=== PATIENT | female | born 1990 | race Hispanic/Latino ===

== ENCOUNTER 2017-05-05 18:25 | Emergency (ER) | payer OTHER ==
[2017-05-05] MEDS ORDERED: Proparacaine 0.5% Opth 15 ML BOT ONE (21:11)
[2017-05-05] MEDS ORDERED: Fluorescein Opthalmic Strip ONE (21:11)
== END 2017-05-05 22:09 | disposition home or self-care (01) ==
LOC: ERS 18:25
DX: H57.12 Ocular pain, left eye (principal); E11.9 Type 2 diabetes mellitus without complications; F31.9 Bipolar disorder, unspecified; F41.9 Anxiety disorder, unspecified
CPT/HCPCS: 99282

== ENCOUNTER 2018-04-12 11:14 | Emergency (ER) | payer OTHER ==
[2018-04-12] MEDS ORDERED: Proparacaine 0.5% Opth 15 ML BOT ONE (12:23)
[2018-04-12] MEDS ORDERED: Fluorescein Opthalmic Strip ONE (12:23)
== END 2018-04-12 12:35 | disposition home or self-care (01) ==
LOC: ERS 11:14
DX: S05.01XA Injury of conjunctiva and corneal abrasion without foreign body, right eye, initial encounter (principal); H10.211 Acute toxic conjunctivitis, right eye; E11.9 Type 2 diabetes mellitus without complications; F41.9 Anxiety disorder, unspecified; F31.9 Bipolar disorder, unspecified; X58.XXXA Exposure to other specified factors, initial encounter
CPT/HCPCS: 99283

== ENCOUNTER 2020-03-27 13:18 | Emergency (ER) | payer OTHER ==
[2020-03-27] MEDS ORDERED: Proparacaine 0.5% Opth 15 ML BOT ONE (14:21)
[2020-03-27] MEDS ORDERED: Fluorescein Opthalmic Strip ONE (14:21)
== END 2020-03-27 15:56 | disposition home or self-care (01) ==
LOC: ERS 13:18
DX: S05.91XA Unspecified injury of right eye and orbit, initial encounter (principal); E11.9 Type 2 diabetes mellitus without complications; F41.9 Anxiety disorder, unspecified; F32.9 Major depressive disorder, single episode, unspecified; X58.XXXA Exposure to other specified factors, initial encounter
CPT/HCPCS: 99283

== ENCOUNTER 2020-06-04 21:43 | Emergency (ER) | payer OTHER ==
[2020-06-04] MEDS ORDERED: Acetaminophen 500 MG TAB ONE (23:41)
== END 2020-06-05 00:36 | disposition home or self-care (01) ==
LOC: ERS 21:43
DX: J02.9 Acute pharyngitis, unspecified (principal); E11.9 Type 2 diabetes mellitus without complications
CPT/HCPCS: 36416; 99283

== ENCOUNTER 2021-05-03 14:30 | Emergency (ER) | payer OTHER ==
[2021-05-03] MEDS ORDERED: Ondansetron ODT 4 MG TAB ONE (16:48)
[2021-05-03] MEDS ORDERED: Ketorolac Tromethamine 30 MG/ML VIAL ONE (16:48)
[2021-05-03 22:49] LABS: SARS-CoV-2 PCR by NAA DETECTED (NotDetected)
== END 2021-05-03 17:15 | disposition home or self-care (01) ==
LOC: ERS 14:30
DX: U07.1 COVID-19 (principal); J06.9 Acute upper respiratory infection, unspecified; E11.9 Type 2 diabetes mellitus without complications
CPT/HCPCS: 87804; 96372; 99283; J1885; Q0162; U0003; U0005

== ENCOUNTER 2021-05-10 22:40 | Emergency (ER) | payer OTHER ==
[2021-05-10] MEDS ORDERED: Ondansetron PF 4 MG/2 ML Vial ONE (23:02)
[2021-05-10] MEDS ORDERED: Ketorolac Tromethamine 30 MG/ML VIAL ONE (23:02)
[2021-05-10] MEDS ORDERED: Acetaminophen 500 MG TAB ONE (23:02)
== END 2021-05-11 01:00 | disposition home or self-care (01) ==
LOC: ERS 22:40
DX: U07.1 COVID-19 (principal); E11.9 Type 2 diabetes mellitus without complications
CPT/HCPCS: 36416; 96374; 96375; J1885; J2405

== ENCOUNTER 2022-08-06 12:04 | Emergency (ER) | payer OTHER | END 2022-08-06 13:00 | disposition left against medical advice (07) | LOC: ERS 12:04 | DX: Z91.199 Patient's noncompliance with other medical treatment and regimen due to unspecified reason (principal) | CPT/HCPCS: 99283 ==

== ENCOUNTER 2023-12-06 22:38 | Observation (INO) | payer OTHER ==
[2023-12-06 23:38] LABS: Influenza A by NAA Not Detected (NotDetected); Influenza B by NAA Not Detected (NotDetected); SARS-CoV-2 NAA Rapid Test Not Detected (NotDetected)
[2023-12-07] MEDS ORDERED: Ketorolac Tromethamine 30 MG (1 mL) VIAL ONE ×2 (00:21→09:46)
[2023-12-07 00:29] LABS: #Basophils 0.03 10x3/uL (0.0-0.2); #Eosinphils Less than 0.03 10x3/uL (0.0-0.7); %Basophils 0.2 % (0.0-1.0); %Neutrophils 83.3 % (42.0-75.0); Hematocrit 34.5 % (36.0-47.0); Hemoglobin 11.7 g/dL (12.0-16.0); Mean Corpuscular HGB CONC 33.9 g/dL (32.0-36.0); Mean Corpuscular Hemoglobin 29.3 pg (27.0-31.0); Mean Corpuscular Volume 86.3 fL (78.0-98.0); Mean Platelet Volume 10.1 fL (7.4-10.4); Platelet Count 418 10x3/uL (130-400); RBC Distribution Width 11.3 % (11.5-14.5)
[2023-12-07 00:43] LABS: BHCG - Serum Negative (NEGATIVE); Pregs Control Background? CLEAR/WHITE (CLR/WHITE); Pregs Control Bar Appear? YES (CONTROL BAR)
[2023-12-07 01:00] LABS: ALT (SGPT) Less than 5 U/L (8-55); AST (SGOT) 9 U/L (5-34); Albumin 2.9 g/dL (3.5-5.0); Alkaline Phosphatase 148 U/L (40-110); Anion Gap 20 mmol/L (10-20); BUN (Urea Nitrogen) 8 mg/dL (7.0-18.7); Bilirubin, Total 0.4 mg/dL (0.2-1.2); Calc. Creatinine Clearance 0 mL/min (70-130); Calcium 9.6 mg/dL (7.8-10.44); Carbon Dioxide 19 mmol/L (22-29); Chloride 98 mmol/L (98-107); Estimated GFR 104; Globulin 4.8 g/dL (2.4-3.5); Glucose 365 mg/dL (70-105); Lipase 11 U/L (8-78); Potassium 3.9 mmol/L (3.5-5.1); Protein, Total 7.7 g/dL (6.0-8.3); Sodium 133 mmol/L (136-145)
[2023-12-07] MEDS ORDERED: Sodium Chloride 0.9% 100 ML ONE (01:22)
[2023-12-07] MEDS ORDERED: Morphine 4 MG/ML VIAL ONE (01:22)
[2023-12-07] MEDS ORDERED: Piperacillin/Tazobactam 4.5 GM VIAL ONE (01:22)
[2023-12-07 02:11] LABS: Bacteria/HPF 2+ HPF (None Seen); Bilirubin Negative (Negative); Blood, Urine 2+ (Negative); CAUTI Indications for Culture Pelvic or flank pain; Clarity Clear (Clear); Glucose, Urine (Dipstick) Greater than 1000 mg/dL (Negative); Ketone, Urine Greater than 150 mg/dL (Negative); Leukocyte 25 Leu/uL (Negative); Nitrite Negative (Negative); Protein, Urine (Dipstick) 20 mg/dL (Neg-Trace); Specific Gravity, Urine 1.037 (1.002-1.036); Squamous Epithelial 0-3 HPF (0-3); Urobilinogen Normal mg/dL (Less than 2); WBC/HPF 21-50 HPF (0-3); Yeast-Budding 2+ HPF (None Seen); pH, Urine 5.5 (5.0-9.0)
[2023-12-07] MEDS ORDERED: Morphine 4 MG/ML VIAL SLOW IVP PRN ×2 (02:17→02:37)
[2023-12-07 02:18] LABS: Urine Culture Reflex Yes Yes
[2023-12-07] MEDS ORDERED: Dextrose 50% Abboject 50 ML SYRINGE SLOW IVP PRN (02:24)
[2023-12-07] MEDS ORDERED: Ipratropium/Albuterol 3 ML NEB NEB PRN (02:24)
[2023-12-07] MEDS ORDERED: Dextrose 5% in Water 1,000 ML IV PRN (02:24)
[2023-12-07] MEDS ORDERED: Glucagon 1 MG/ML KIT IM PRN (02:24)
[2023-12-07] MEDS ORDERED: Mag-Al 1200 mg/1200 mg/30 ML UDCUP PO PRN (02:24)
[2023-12-07] MEDS ORDERED: hydrALAZINE 20 MG/ML VIAL SLOW IVP PRN (02:24)
[2023-12-07] MEDS ORDERED: Acetaminophen 325 MG TAB PO PRN ×2 (02:30→02:37)
[2023-12-07] MEDS ORDERED: Ondansetron ODT 4 MG TAB SL PRN (02:30)
[2023-12-07] MEDS: Lactated Ringer's 1,000 ML IV SCH (03:49)
[2023-12-07] MEDS: Ondansetron PF 4 MG/2 ML Vial IVP PRN (03:50)
[2023-12-07] MEDS: HYDROcodone/Acetaminophen 5/325 mg Tablet PO PRN (03:50)
[2023-12-07 04:10] VITALS: BMI 23.3
[2023-12-07] MEDS: Piperacillin/Tazobactam 3.375 GM in Sodium Chloride 0.9% 100 ML IVPB SCH (06:05)
[2023-12-07] MEDS: HumaLOG 300 UNITS/3 ML VIAL SC PRN ×2 (06:14→21:21)
[2023-12-07 07:37] LABS: ALT (SGPT) 16 U/L (8-55); AST (SGOT) 41 U/L (5-34); Albumin 2.4 g/dL (3.5-5.0); Alkaline Phosphatase 173 U/L (40-110); Anion Gap 18 mmol/L (10-20); BUN (Urea Nitrogen) 7 mg/dL (7.0-18.7); Bilirubin, Total 0.3 mg/dL (0.2-1.2); Calc. Creatinine Clearance 100 mL/min (70-130); Calcium 8.5 mg/dL (7.8-10.44); Carbon Dioxide 16 mmol/L (22-29); Chloride 105 mmol/L (98-107); Estimated GFR 117; Globulin 4.1 g/dL (2.4-3.5); Glucose 306 mg/dL (70-105); Potassium 4.1 mmol/L (3.5-5.1); Protein, Total 6.5 g/dL (6.0-8.3); Sodium 135 mmol/L (136-145)
[2023-12-07] MEDS: Famotidine 20 MG TAB PO SCH (07:50)
[2023-12-07 07:55] LABS: Hemoglobin A1c 13.2 % (4.0-6.0)
[2023-12-07] MEDS ORDERED: EPINEPHrine 1 MG/ML VIAL ONE (08:42)
[2023-12-07] MEDS ORDERED: Bupivacaine 0.25% HCL 30 ML VIAL ONE (08:43)
[2023-12-07] MEDS ORDERED: Midazolam HCl 2 mg/2 ml Vial ONE (09:25)
[2023-12-07] MEDS ORDERED: Dexamethasone 20 MG/5 ML VIAL ONE (09:46)
[2023-12-07] MEDS ORDERED: Rocuronium Bromide 10 MG/ML (10ML VIAL) ONE (09:46)
[2023-12-07] MEDS ORDERED: PROPOFOL 200 MG/20 ML VIAL ONE (09:46)
[2023-12-07] MEDS ORDERED: Glycopyrrolate 0.2 MG/ML 5 ML SYRINGE ONE (09:46)
[2023-12-07] MEDS ORDERED: NEOSTIGMINE 3 MG/3 ML SYR 3 MG/3 ML SYRINGE ONE (09:46)
[2023-12-07] MEDS ORDERED: Lidocaine 1% PF 5 ML VIAL ONE (09:46)
[2023-12-07] MEDS ORDERED: fentaNYL PF 100 MCG/2 ML SYRINGE ONE (11:40)
[2023-12-07] MEDS ORDERED: Non-Formulary Medication 1 EACH PO PRN (12:02)
[2023-12-07] MEDS ORDERED: Promethazine HCl 25 MG/ML VIAL IM PRN (12:15)
[2023-12-07] MEDS ORDERED: Ondansetron HCl/PF 4 MG/2 ML Vial IVP PRN (12:15)
[2023-12-07] MEDS: Ketorolac Tromethamine 30 MG (1 mL) VIAL IVP PRN (15:19)
[2023-12-07] MEDS: Promethazine HCl 25 MG/ML VIAL IM PRN (17:21)
[2023-12-07] MEDS: Insulin Glargine 30 UNITS/0.3 ML VIAL SC SCH (21:21)
[2023-12-08] MEDS: HumaLOG 300 UNITS/3 ML VIAL SC PRN (06:07)
[2023-12-08] MEDS: Insulin Glargine 30 UNITS/0.3 ML VIAL SC SCH (12:59)
[2023-12-08] MEDS: Ondansetron PF 4 MG/2 ML Vial IVP PRN (12:59)
[2023-12-08] MEDS: Sodium Chloride 0.9% 500 ML IV SCH (13:00)
[2023-12-08 17:33] LABS: Hemoglobin 10.2 g/dL (12.0-16.0); Platelet Count 435 10x3/uL (130-400)
[2023-12-08] MEDS: Metoclopramide HCl 10 MG (2 mL) VIAL IVP SCH (18:09)
[2023-12-09 05:02] LABS: #Basophils Less than 0.03 10x3/uL (0.0-0.2); #Eosinphils Less than 0.03 10x3/uL (0.0-0.7); %Basophils 0.1 % (0.0-1.0); %Lymphocytes 3.5 % (21.0-51.0); %Monocytes 4.9 % (0.0-10.0); %Neutrophils 90.9 % (42.0-75.0); Hematocrit 28.6 % (36.0-47.0); Hemoglobin 9.4 g/dL (12.0-16.0); Mean Corpuscular HGB CONC 32.9 g/dL (32.0-36.0); Mean Corpuscular Hemoglobin 29.4 pg (27.0-31.0); Mean Corpuscular Volume 89.4 fL (78.0-98.0); Mean Platelet Volume 9.9 fL (7.4-10.4); Platelet Count 448 10x3/uL (130-400); RBC Distribution Width 11.9 % (11.5-14.5)
[2023-12-09 05:35] LABS: Anion Gap 18 mmol/L (10-20); BUN (Urea Nitrogen) 12 mg/dL (7.0-18.7); Calc. Creatinine Clearance 83 mL/min (70-130); Calcium 9.2 mg/dL (7.8-10.44); Carbon Dioxide 15 mmol/L (22-29); Chloride 113 mmol/L (98-107); Estimated GFR 96; Glucose 283 mg/dL (70-105); Potassium 2.9 mmol/L (3.5-5.1); Sodium 143 mmol/L (136-145)
[2023-12-09] MEDS: Potassium Chloride 20 MEQ in Premix 1 BAG IVPB SCH (06:59)
[2023-12-09 07:42] LABS: Magnesium 1.9 mg/dL (1.6-2.6)
[2023-12-09 10:14] LABS: Bilirubin Negative (Negative); Blood, Urine 2+ (Negative); Clarity Turbid (Clear); Glucose, Urine (Dipstick) Greater than 1000 mg/dL (Negative); Ketone, Urine Greater than 150 mg/dL (Negative); Leukocyte Negative Leu/uL (Negative); Nitrite Negative (Negative); Protein, Urine (Dipstick) 70 mg/dL (Neg-Trace); Specific Gravity, Urine 1.037 (1.002-1.036); Squamous Epithelial None Seen HPF (0-3); Urobilinogen Normal mg/dL (Less than 2); Yeast-Budding 4+ HPF (None Seen)
[2023-12-09 10:26] LABS: Bacteria/HPF Rare-Few HPF (None Seen)
[2023-12-09] MEDS: Pantoprazole 40 MG VIAL IVP SCH (12:32)
[2023-12-09] MEDS ORDERED: Iopamidol-370 76% 500 ML MDV (1 ML CHARGE) ONE (12:34)
[2023-12-09 14:46] LABS: Anion Gap 17 mmol/L (10-20); BUN (Urea Nitrogen) 11 mg/dL (7.0-18.7); Calc. Creatinine Clearance 74 mL/min (70-130); Calcium 9.3 mg/dL (7.8-10.44); Carbon Dioxide 16 mmol/L (22-29); Chloride 117 mmol/L (98-107); Estimated GFR 85; Glucose 289 mg/dL (70-105); Potassium 2.8 mmol/L (3.5-5.1); Sodium 147 mmol/L (136-145)
[2023-12-09 20:12] VITALS: BP 128/80; TEMP 98.2
== END 2023-12-09 21:00 | disposition home or self-care (01) ==
LOC: ERS 22:38 → INTOOBSV 12-07 02:12 → SJJU 12-07 02:12 → OBSVTOIN 12-07 02:12
PROVIDERS: ADMIT Internal Medicine; ATTEND Internal Medicine
PROC: 0FT44ZZ Resection of Gallbladder, Percutaneous Endoscopic Approach (ICD-10-PCS; principal; 2023-12-07)
PROC: 3E033XZ Introduction of Vasopressor into Peripheral Vein, Percutaneous Approach (ICD-10-PCS; 2023-12-07)
DX: K80.12 Calculus of gallbladder with acute and chronic cholecystitis without obstruction (principal); K20.90 Esophagitis, unspecified without bleeding; E87.20 Acidosis, unspecified; N39.0 Urinary tract infection, site not specified; N13.30 Unspecified hydronephrosis; F41.9 Anxiety disorder, unspecified; F32.A Depression, unspecified; E11.65 Type 2 diabetes mellitus with hyperglycemia; E87.6 Hypokalemia; R33.9 Retention of urine, unspecified; Z79.4 Long term (current) use of insulin; Z79.899 Other long term (current) drug therapy
CPT/HCPCS: 36415; 36416; 51701; 51798; 71045; 74177; 76705; 80048; 80053; 81001; 83036; 83605; 83690; 83735; 84703; 85014; 85018; 85025; 85049; 87040; 87077; 87086; 88304; 96361; 96365; 96372; 96375; 96376; C1889; C9113; G0378; J0171; J0665; J1100; J1815; J1885; J2250; J2270; J2405; J2543; J2550; J2704; J2765; J3480; J3490; J7030; J7120; Q9967

== ENCOUNTER 2023-12-13 21:49 | Inpatient (IN) | payer OTHER ==
[~2023-12-13 21:49] MED LIST: Iopamidol-370 76% 500 ML MDV (1 ML CHARGE) ONE
[2023-12-13] MEDS ORDERED: NOREPINEPHRINE 8 MG/250 ML-D5W 250 ML ONE (22:05)
[2023-12-13 22:16] LABS: Analyzer IN Cardio ER; Base Excess (BEa) -25.3 mEq/L (-2.0 to +3.0); CO2 Tension 41.5 mmHg (35.0-45.0); Calcium, Ionized (arterial) 1.29 mmol/L (1.12-1.30); Carboxyhemoglobin (COHb) 0.4 gm% (0.0-3.0); Hematocrit-ABG 26 % (36.0-47.0); Hemoglobin (Hb) 8.9 g/dL (12.0-16.0); O2 Tension (PaO2), arterial 241.3 mmHg (80.0-100.0)
[2023-12-13 22:21] LABS: Actual Bicarbonate (HCO3a) 7.1 mEq/L (22-28); Potassium - ABG Lab 1.42 mmol/L (3.70-5.30)
[2023-12-13 22:22] LABS: ALV-art Gradient 419.825 mmHg (0-20); Puncture Site LBA
[2023-12-13] MEDS ORDERED: Potassium Chloride 20 MEQ (100 mL) BAG ONE ×2 (22:24→23:04)
[2023-12-13 22:30] LABS: Bacteria/HPF None Seen HPF (None Seen); Bilirubin Negative (Negative); Blood, Urine 3+ (Negative); CAUTI Indications for Culture Alt mental st,lethar; Clarity Clear (Clear); Glucose, Urine (Dipstick) Greater than 1000 mg/dL (Negative); Ketone, Urine 80 mg/dL (Negative); Leukocyte Negative Leu/uL (Negative); Nitrite Negative (Negative); Pregnancy Test - Urine (BHCG) Negative (Negative); Pregu Control Background? CLEAR/WHITE (CLR/WHITE); Pregu Control Bar Appear? YES (CONTROL BAR); Protein, Urine (Dipstick) 50 mg/dL (Neg-Trace); RBC/HPF 21-50 HPF (0-3); Squamous Epithelial 0-3 HPF (0-3); Urobilinogen Normal mg/dL (Less than 2); WBC/HPF 21-50 HPF (0-3); Yeast-Budding 2+ HPF (None Seen); pH, Urine 6.5 (5.0-9.0)
[2023-12-13 22:36] LABS: Amphetamine Not Detected (NotDetected); Barbiturates Screen Not Detected (NotDetected); Benzodiazepine Screen Not Detected (NotDetected); Cocaine Metabolite Screen Not Detected (NotDetected); Methadone Not Detected (NotDetected); Methamphetamine Not Detected (NotDetected); Opiate Screen Not Detected (NotDetected); Oxycodone Screen Not Detected (NotDetected); Phencyclidine (PCP) Not Detected (NotDetected); THC/Cannabinoid Screen Not Detected (NotDetected); Tricyclic Screen Not Detected (NotDetected)
[2023-12-13] MEDS ORDERED: Calcium Chloride 1 GM/10 ML Abboject SYRINGE ONE (22:37)
[2023-12-13] MEDS ORDERED: Atropine Sulfate 1 mg/10 ml Syringe ONE (22:37)
[2023-12-13] MEDS ORDERED: EPINEPHrine 1 MG/10 ML Abboject SYRINGE ONE (22:37)
[2023-12-13] MEDS ORDERED: Sodium Bicarb 50 MEQ/50 ML Abboject 8.4% SYRINGE ONE ×2 (22:37→22:56)
[2023-12-13] MEDS ORDERED: Amiodarone 150 MG/3 ML VIAL ONE (22:37)
[2023-12-13 22:40] LABS: Urine Culture Reflex Yes Yes
[2023-12-13] MEDS ORDERED: Potassium Bicarbonate/Cit Ac 20 MEQ TAB ONE (22:42)
[2023-12-13 22:46] LABS: Hematocrit 28.5 % (36.0-47.0); Hemoglobin 8.9 g/dL (12.0-16.0); Mean Corpuscular HGB CONC 31.2 g/dL (32.0-36.0); Mean Corpuscular Hemoglobin 28.7 pg (27.0-31.0); Mean Corpuscular Volume 91.9 fL (78.0-98.0); Mean Platelet Volume 10.1 fL (7.4-10.4); Platelet Count 489 10x3/uL (130-400); RBC Distribution Width 14.6 % (11.5-14.5)
[2023-12-13] MEDS ORDERED: Magnesium 2 GM/50 ML BAG (IN WATER) ONE (22:57)
[2023-12-13 22:58] LABS: Acetaminophen Less than 10 mcg/mL (10.0-30.0); Alcohol Less than 10.0 mg/dL (Less than 10); INR-International Normal Ratio 1.9; Prothrombin Time 22.3 sec (12.0-14.7); Salicylate Less than 8.0 mg/dL (15.0-30.0)
[2023-12-13 22:59] LABS: PTT 38.7 sec (22.9-36.1)
[2023-12-13 23:03] LABS: Troponin I 0.036 ng/mL (< 0.028)
[2023-12-13 23:05] LABS: ALT (SGPT) 24 U/L (8-55); AST (SGOT) 42 U/L (5-34); Albumin 1.4 g/dL (3.5-5.0); Alkaline Phosphatase 146 U/L (40-110); Anion Gap 24 mmol/L (10-20); BUN (Urea Nitrogen) 19 mg/dL (7.0-18.7); Bilirubin, Total 0.2 mg/dL (0.2-1.2); Calc. Creatinine Clearance 0 mL/min (70-130); Calcium 7.6 mg/dL (7.8-10.44); Carbon Dioxide 8 mmol/L (22-29); Chloride 137 mmol/L (98-107); Estimated GFR 52; Globulin 3.1 g/dL (2.4-3.5); Glucose 757 mg/dL (70-105); Potassium 1.4 mmol/L (3.5-5.1); Protein, Total 4.5 g/dL (6.0-8.3); Sodium 168 mmol/L (136-145)
[2023-12-13 23:12] LABS: Actual Bicarbonate (HCO3a) 24.4 mEq/L (22-28); Analyzer IN Cardio ER; Carboxyhemoglobin (COHb) 1.1 gm% (0.0-3.0); Hematocrit-ABG 21 % (36.0-47.0); O2 Tension (PaO2), arterial 73.7 mmHg (80.0-100.0); Potassium - ABG Lab 4.78 mmol/L (3.70-5.30)
[2023-12-13 23:13] LABS: pH, Arterial 7.175 (7.35-7.45)
[2023-12-13] MEDS ORDERED: Phytonadione 10 MG/ML AMP ONE (23:40)
[2023-12-14] MEDS ORDERED: Pantoprazole 40 MG VIAL ONE (00:17)
[2023-12-14] MEDS ORDERED: Vasopressin 20 UNITS/ML VIAL ONE (00:26)
[2023-12-14 00:34] LABS: Anion Gap 29 mmol/L (10-20); BUN (Urea Nitrogen) 18 mg/dL (7.0-18.7); Calc. Creatinine Clearance 0 mL/min (70-130); Carbon Dioxide 17 mmol/L (22-29); Chloride 140 mmol/L (98-107); Estimated GFR 62; Glucose 720 mg/dL (70-105); Iron 40 ug/dL (50-170); Iron Binding Capacity, Total 115 mcg/dL (265-497); Potassium 2.2 mmol/L (3.5-5.1); Sodium 184 mmol/L (136-145)
[2023-12-14] MEDS ORDERED: Ondansetron PF 4 MG/2 ML Vial IVP PRN (00:45)
[2023-12-14] MEDS ORDERED: Sodium Chloride 0.9% 1,000 ML IV SCH (00:45)
[2023-12-14] MEDS ORDERED: Acetaminophen 325 MG TAB PO PRN (00:45)
[2023-12-14] MEDS ORDERED: Ondansetron ODT 4 MG TAB SL PRN (00:45)
[2023-12-14] MEDS ORDERED: EPINEPHrine 1 MG/ML VIAL ONE ×2 (00:51)
[2023-12-14] MEDS ORDERED: Potassium Chloride 20 MEQ (100 mL) BAG ONE (00:59)
[2023-12-14 01:47] LABS: Hemoglobin 15.2 g/dL (12.0-16.0); Mean Corpuscular HGB CONC 32.3 g/dL (32.0-36.0); Mean Corpuscular Hemoglobin 27.4 pg (27.0-31.0); Mean Corpuscular Volume 84.8 fL (78.0-98.0); Mean Platelet Volume 9.9 fL (7.4-10.4); Platelet Count 347 10x3/uL (130-400); RBC Distribution Width 13.8 % (11.5-14.5); Red Blood Cell (RBC) Count 5.54 mill/uL (4.20-5.40)
[2023-12-14 02:09] LABS: Lactic Acid 8.6 mmol/L (0.5-2.2)
[2023-12-14 02:12] LABS: Actual Bicarbonate (HCO3a) 17.7 mEq/L (22-28); Base Excess (BEa) -11.7 mEq/L (-2.0 to +3.0); CO2 Tension 51.8 mmHg (35.0-45.0); Calcium, Ionized (arterial) 1.35 mmol/L (1.12-1.30); Carboxyhemoglobin (COHb) 0.2 gm% (0.0-3.0); Hematocrit-ABG 66 % (36.0-47.0); Potassium - ABG Lab 3.27 mmol/L (3.70-5.30)
[2023-12-14 02:14] LABS: Hemoglobin (Hb) 22.4 g/dL (12.0-16.0)
[2023-12-14 02:15] LABS: Puncture Site Arterial Line
[2023-12-14 02:17] LABS: Band 35 % (5-11); Hypochromia SLIGHT = 6-15 cells HPF (0-5); Large Platelets 2.8 % (0-5); Lymphocytes 14 % (21-51); Metamyelocyte 17 % (0-0); Monocytes 12 % (0-10); Myelocyte 1 % (0-0); Neutrophil 18 % (42-75); Nucleated RBC (Manual Ct) 13 % (0); Platelet Adequacy Comment Platelets Normal; Poikilocytosis SLIGHT = 6-15 cells HPF (0-5); Polychromasia SLIGHT = 2-3 cells HPF (0-2); Promyelocytes 1 % (0-0); Reactive Lymphocytes 1 % (0-10)
[2023-12-14] MEDS: NOREPINEPHRINE 8 MG/250 ML-D5W 250 ML IVPB SCH (02:30)
[2023-12-14] MEDS: EPINEPHrine 1 MG/ML VIAL ONE (03:03)
[2023-12-14] MEDS: Dextrose 5% in Water 1,000 ML IV SCH ×2 (03:05→03:42)
[2023-12-14 03:11] VITALS: BMI 21.2
[2023-12-14] MEDS: Pantoprazole 80 MG in Sodium Chloride 0.9% 100 ML IVPB SCH (03:27)
[2023-12-14] MEDS: Hydrocortisone Sod Succ/PF 100 mg/2 ml Vial IVP SCH ×2 (03:30→09:27)
[2023-12-14] MEDS: NOREPINEPHRINE 8 MG/250 ML-D5W 250 ML ONE (03:33)
[2023-12-14] MEDS: EPINEPHrine 4 MG in Dextrose 5% in Water 250 ML IV SCH (03:35)
[2023-12-14] MEDS: Vasopressin 20 UNITS in Sodium Chloride 0.9% 50 ML IV SCH (03:35)
[2023-12-14] MEDS: FOLIC ACID IV SCH (03:39)
[2023-12-14] MEDS: SODIUM CHLORIDE 0.9% IV SCH (03:39)
[2023-12-14] MEDS: Sodium Bicarb 50 MEQ/50 ML Abboject 8.4% SYRINGE ONE (03:39)
[2023-12-14] MEDS: Albumin 25% 25 GM (100 mL) BOT IVPB SCH ×3 (03:40→08:53)
[2023-12-14] MEDS: Hydrocortisone Sod Succ/PF 100 mg/2 ml Vial ONE (03:42)
[2023-12-14 03:45] LABS: Hematocrit 61.7 % (36.0-47.0); Hemoglobin 21.2 g/dL (12.0-16.0); Mean Corpuscular HGB CONC 34.4 g/dL (32.0-36.0); Mean Corpuscular Volume 84.5 fL (78.0-98.0); Mean Platelet Volume 9.9 fL (7.4-10.4); Platelet Count 253 10x3/uL (130-400); RBC Distribution Width 17.3 % (11.5-14.5)
[2023-12-14] MEDS: Potassium Chloride 40 MEQ in Premix 1 BAG IVPB SCH ×2 (03:50→04:40)
[2023-12-14] MEDS: Piperacillin/Tazobactam 3.375 GM in Sodium Chloride 0.9% 100 ML IVPB SCH ×3 (03:51→10:11)
[2023-12-14 04:14] LABS: ALT (SGPT) 859 U/L (8-55); AST (SGOT) 2188 U/L (5-34); Albumin 1.4 g/dL (3.5-5.0); Alkaline Phosphatase 207 U/L (40-110); Anion Gap 24 mmol/L (10-20); BUN (Urea Nitrogen) 21 mg/dL (7.0-18.7); Bilirubin, Total 2.1 mg/dL (0.2-1.2); Calc. Creatinine Clearance 60 mL/min (70-130); Calcium 8.3 mg/dL (7.8-10.44); Carbon Dioxide 18 mmol/L (22-29); Chloride 134 mmol/L (98-107); Estimated GFR 63; Globulin 3.1 g/dL (2.4-3.5); Glucose 740 mg/dL (70-105); Lactic Acid 7.2 mmol/L (0.5-2.2); Magnesium 2.4 mg/dL (1.6-2.6); Phosphorus 3.1 mg/dL (2.3-4.7); Potassium 2.7 mmol/L (3.5-5.1); Protein, Total 4.5 g/dL (6.0-8.3); Sodium 173 mmol/L (136-145)
[2023-12-14 04:19] LABS: Band 39 % (5-11); Large Platelets 8.2 % (0-5); Lymphocytes 8 % (21-51); Metamyelocyte 25 % (0-0); Monocytes 4 % (0-10); Myelocyte 4 % (0-0); Neutrophil 16 % (42-75); Nucleated RBC (Manual Ct) 22 % (0); Platelet Adequacy Comment Platelets Normal; Polychromasia SLIGHT = 2-3 cells HPF (0-2); Reactive Lymphocytes 2 % (0-10)
[2023-12-14 04:41] LABS: Actual Bicarbonate (HCO3a) 16.6 mEq/L (22-28); Base Excess (BEa) -9.2 mEq/L (-2.0 to +3.0); CO2 Tension 36.8 mmHg (35.0-45.0); Calcium, Ionized (arterial) 1.24 mmol/L (1.12-1.30); Hematocrit-ABG 61 % (36.0-47.0); Hemoglobin (Hb) 20.9 g/dL (12.0-16.0); Potassium - ABG Lab 3.15 mmol/L (3.70-5.30); pH, Arterial 7.273 (7.35-7.45)
[2023-12-14 04:44] LABS: Puncture Site Arterial Line
[2023-12-14] MEDS: Norepinephrine 16 MG in Dextrose 5% in Water 234 ML IVPB SCH (06:14)
[2023-12-14] MEDS: Sodium Bicarb 50 mEq/50 ML VIAL IVP SCH ×2 (06:16→13:15)
[2023-12-14] MEDS: Acetaminophen 650 MG Suppository PR PRN (06:18)
[2023-12-14] MEDS: Phenylephrine 40 MG/NS 250 ML 40 MG in Premix 1 BAG IVPB SCH (06:39)
[2023-12-14] MEDS ORDERED: Pantoprazole 80 MG, Admixture Fee 1 EACH in Sodium Chloride 0.9% 100 ML IVPB SCH (06:45)
[2023-12-14 07:40] LABS: Lactic Acid 9.1 mmol/L (0.5-2.2)
[2023-12-14 07:41] LABS: ALT (SGPT) 520 U/L (8-55); AST (SGOT) 1321 U/L (5-34); Albumin 1.8 g/dL (3.5-5.0); Alkaline Phosphatase 117 U/L (40-110); Anion Gap 29 mmol/L (10-20); BUN (Urea Nitrogen) 24 mg/dL (7.0-18.7); Bilirubin, Total 2.7 mg/dL (0.2-1.2); Calc. Creatinine Clearance 53 mL/min (70-130); Calcium 7.6 mg/dL (7.8-10.44); Carbon Dioxide 17 mmol/L (22-29); Chloride 132 mmol/L (98-107); Estimated GFR 55; Potassium 3.4 mmol/L (3.5-5.1); Protein, Total 3.8 g/dL (6.0-8.3); Sodium 175 mmol/L (136-145)
[2023-12-14] MEDS: Potassium Chloride 40 MEQ in Sodium Chloride 0.45% 1,000 ML IV SCH ×2 (08:06→10:09)
[2023-12-14 08:08] VITALS: TEMP 103.6
[2023-12-14 08:09] LABS: Glucose 839 mg/dL (70-105)
[2023-12-14] MEDS ORDERED: Propofol 1,000 MG/100 ML VIAL IV PRN (08:45)
[2023-12-14] MEDS ORDERED: Morphine 2 MG/ML VIAL SLOW IVP PRN (08:45)
[2023-12-14] MEDS ORDERED: Fentanyl BOLUS 250 ML IVPB PRN (08:45)
[2023-12-14] MEDS ORDERED: Propofol BOLUS 1,000 MG/100 ML VIAL IV PRN (08:45)
[2023-12-14] MEDS ORDERED: Lorazepam 2 MG/ML VIAL SLOW IVP PRN (08:45)
[2023-12-14] MEDS: Fentanyl CADD 100 ML IV SCH (08:51)
[2023-12-14] MEDS ORDERED: Sodium Chloride 0.9% 1,000 ML IV PRN ×4 (09:14)
[2023-12-14] MEDS ORDERED: Dextrose 50% Abboject 50 ML SYRINGE SLOW IVP PRN (09:14)
[2023-12-14] MEDS ORDERED: Dextrose 5 %-0.45 % NaCl 1,000 ML IV PRN (09:14)
[2023-12-14] MEDS ORDERED: D5 1/2 NS w/20 mEq KCL 1,000 ML IV PRN (09:14)
[2023-12-14] MEDS ORDERED: NS 0.9% w/ 20 MEQ KCL 1,000 ML IV PRN ×2 (09:14)
[2023-12-14] MEDS: Electrolyte Replacement Protocol 1 EACH IVPB ONE (09:15)
[2023-12-14] MEDS: Pantoprazole 40 MG VIAL IVP SCH (09:26)
[2023-12-14] MEDS: Insulin Reg, Human 100 UNITS in Sodium Chloride 0.9% 100 ML IVPB SCH (09:27)
[2023-12-14] MEDS: Ventilator Sedation Protocol 1 EACH FS ONE (09:28)
[2023-12-14] MEDS ORDERED: Electrolyte Replacement Protocol FS PRN (09:30)
[2023-12-14] MEDS: Potassium Phosphate 30 MMOL in Sodium Chloride 0.9% 250 ML 250 ML IVPB SCH (10:12)
[2023-12-14 10:28] LABS: Anion Gap 28 mmol/L (10-20); BUN (Urea Nitrogen) 28 mg/dL (7.0-18.7); Calc. Creatinine Clearance 44 mL/min (70-130); Calcium 7.9 mg/dL (7.8-10.44); Carbon Dioxide 20 mmol/L (22-29); Chloride 125 mmol/L (98-107); Estimated GFR 43; Potassium 3.4 mmol/L (3.5-5.1); Sodium 170 mmol/L (136-145)
[2023-12-14 11:02] LABS: CO2 Tension 67.6 mmHg (35.0-45.0)
[2023-12-14 11:03] LABS: Calcium, Ionized (arterial) 1.64 mmol/L (1.12-1.30)
[2023-12-14 11:03] LABS: Glucose 832 mg/dL (70-105)
[2023-12-14 11:18] VITALS: BP 97/56
[2023-12-14 11:35] LABS: Actual Bicarbonate (HCO3a) 17.6 mEq/L (22-28); Base Excess (BEa) -8.9 mEq/L (-2.0 to +3.0); CO2 Tension 40.4 mmHg (35.0-45.0); Calcium, Ionized (arterial) 1.12 mmol/L (1.12-1.30); Carboxyhemoglobin (COHb) 0.9 gm% (0.0-3.0); Hematocrit-ABG 52 % (36.0-47.0); Hemoglobin (Hb) 17.8 g/dL (12.0-16.0); Potassium - ABG Lab 3.52 mmol/L (3.70-5.30); pH, Arterial 7.258 (7.35-7.45)
[2023-12-14 11:39] LABS: O2 Tension (PaO2), arterial 36.4 mmHg (80.0-100.0); Puncture Site Arterial Line
[2023-12-14 13:07] LABS: Hematocrit 47.3 % (36.0-47.0); Hemoglobin 16.6 g/dL (12.0-16.0); Mean Corpuscular HGB CONC 35.1 g/dL (32.0-36.0); Mean Corpuscular Hemoglobin 28.9 pg (27.0-31.0); Mean Corpuscular Volume 82.4 fL (78.0-98.0); Mean Platelet Volume 10.9 fL (7.4-10.4); Platelet Count 147 10x3/uL (130-400); Red Blood Cell (RBC) Count 5.74 mill/uL (4.20-5.40)
[2023-12-14] MEDS: Magnesium 2 GM/50 ML(in water) 2 GM in Premix 1 BAG IVPB SCH (13:10)
[2023-12-14] MEDS: Calcium Chloride 1 GM/10 ML Abboject SYRINGE ONE (13:16)
[2023-12-14] MEDS: Calcium Chloride 1 GM/10 ML Abboject SYRINGE IVP SCH (13:16)
[2023-12-14] MEDS ORDERED: Lidocaine 2 gm/D5W 500 ml 500 ML IVPB SCH (13:30)
[2023-12-14 13:57] LABS: Anion Gap 27 mmol/L (10-20); BUN (Urea Nitrogen) 30 mg/dL (7.0-18.7); Calc. Creatinine Clearance 39 mL/min (70-130); Carbon Dioxide 17 mmol/L (22-29); Chloride 127 mmol/L (98-107); Estimated GFR 38; Glucose 787 mg/dL (70-105); Sodium 167 mmol/L (136-145)
[2023-12-15 08:39] LABS: O2 Tension (PaO2), arterial 42.9 mmHg (80.0-100.0); pH, Arterial 7.151 (7.35-7.45)
[2023-12-15 08:42] LABS: O2 Tension (PaO2), arterial 45.1 mmHg (80.0-100.0)
== END 2023-12-14 13:47 | disposition expired | DRG 871 ==
LOC: ERS 21:49 → CCU 21:51
PROVIDERS: ADMIT Student in an Organized Health Care Education/Training Program; ATTEND Internal Medicine
PROC: 30233N1 Transfusion of Nonautologous Red Blood Cells into Peripheral Vein, Percutaneous Approach (ICD-10-PCS; 2023-12-13)
PROC: 4A133R1 Monitoring of Arterial Saturation, Peripheral, Percutaneous Approach (ICD-10-PCS; 2023-12-13)
PROC: 3E043XZ Introduction of Vasopressor into Central Vein, Percutaneous Approach (ICD-10-PCS; 2023-12-13)
PROC: 5A1935Z Respiratory Ventilation, Less than 24 Consecutive Hours (ICD-10-PCS; 2023-12-13)
PROC: 0BH17EZ Insertion of Endotracheal Airway into Trachea, Via Natural or Artificial Opening (ICD-10-PCS; 2023-12-13)
PROC: 0T9B70Z Drainage of Bladder with Drainage Device, Via Natural or Artificial Opening (ICD-10-PCS; 2023-12-13)
PROC: 03HY32Z Insertion of Monitoring Device into Upper Artery, Percutaneous Approach (ICD-10-PCS; 2023-12-13)
PROC: 4A133B1 Monitoring of Arterial Pressure, Peripheral, Percutaneous Approach (ICD-10-PCS; 2023-12-13)
PROC: 4A133J1 Monitoring of Arterial Pulse, Peripheral, Percutaneous Approach (ICD-10-PCS; 2023-12-13)
PROC: 5A12012 Performance of Cardiac Output, Single, Manual (ICD-10-PCS; 2023-12-13)
PROC: 5A2204Z Restoration of Cardiac Rhythm, Single (ICD-10-PCS; 2023-12-13)
PROC: 0DH67UZ Insertion of Feeding Device into Stomach, Via Natural or Artificial Opening (ICD-10-PCS; 2023-12-13)
PROC: 06HY33Z Insertion of Infusion Device into Lower Vein, Percutaneous Approach (ICD-10-PCS; principal; 2023-12-14)
PROC: 30233M1 Transfusion of Nonautologous Plasma Cryoprecipitate into Peripheral Vein, Percutaneous Approach (ICD-10-PCS; 2023-12-14)
PROC: 30233J1 Transfusion of Nonautologous Serum Albumin into Peripheral Vein, Percutaneous Approach (ICD-10-PCS; 2023-12-14)
PROC: 3E04329 Introduction of Other Anti-infective into Central Vein, Percutaneous Approach (ICD-10-PCS; 2023-12-14)
PROC: 30233K1 Transfusion of Nonautologous Frozen Plasma into Peripheral Vein, Percutaneous Approach (ICD-10-PCS; 2023-12-14)
DX: A41.9 Sepsis, unspecified organism (principal); E11.10 Type 2 diabetes mellitus with ketoacidosis without coma; R65.21 Severe sepsis with septic shock; G93.41 Metabolic encephalopathy; J18.9 Pneumonia, unspecified organism; K72.00 Acute and subacute hepatic failure without coma; J80 Acute respiratory distress syndrome; K56.609 Unspecified intestinal obstruction, unspecified as to partial versus complete obstruction; E87.1 Hypo-osmolality and hyponatremia; D62 Acute posthemorrhagic anemia; E87.0 Hyperosmolality and hypernatremia; R18.8 Other ascites; S27.329A Contusion of lung, unspecified, initial encounter; M96.A3 Multiple fractures of ribs associated with chest compression and cardiopulmonary resuscitation; M96.A1 Fracture of sternum associated with chest compression and cardiopulmonary resuscitation; N17.9 Acute kidney failure, unspecified; Z66 Do not resuscitate; E87.6 Hypokalemia; T68.XXXA Hypothermia, initial encounter; K52.9 Noninfective gastroenteritis and colitis, unspecified; F41.9 Anxiety disorder, unspecified; F32.A Depression, unspecified; Z90.49 Acquired absence of other specified parts of digestive tract; E86.0 Dehydration; E11.65 Type 2 diabetes mellitus with hyperglycemia; Z79.899 Other long term (current) drug therapy; Z79.4 Long term (current) use of insulin; I44.0 Atrioventricular block, first degree; I49.01 Ventricular fibrillation; I46.8 Cardiac arrest due to other underlying condition; R57.8 Other shock
CPT/HCPCS: 36415; 36416; 36430; 36556; 36600; 51702; 70450; 71045; 71275; 74177; 80053; 80306; 80307; 81001; 81025; 82010; 82728; 82805; 83540; 83550; 83605; 83735; 84100; 84145; 84484; 85025; 85384; 85610; 85730; 86850; 86900; 86901; 87040; 87077; 87086; 87149; 87186; 92950; 93005; 93010; 94002; 94003; 94760; 96365; 96366; 96368; 99292; C9113; J0171; J0282; J0461; J1720; J1815; J2543; J3010; J3430; J3475; J3480; J3490; J7050; J7070; P9012; P9016; P9047; Q9967